=== PATIENT | female | born 1960 | race Caucasian/White ===

== ENCOUNTER 2017-07-14 22:19 | Observation (INO) | payer SELFPAY ==
[2017-07-14] MEDS ORDERED: ONDANSETRON HCL INJ/PF 4 MG/2 ML SDV IV ONE (23:04)
[2017-07-14] MEDS ORDERED: NORMAL SALINE 1000 ML 1,000 ML IV ONE (23:04)
--- NOTE | 2017-07-14 23:10 | ER Document Report ---
ED General - General Chief Complaint: Nausea/Vomiting Stated Complaint: NAUSEA Time Seen by Provider: 07/14/17 22:58 Notes: Patient is a 56-year-old female who presents with complaint of altered mental status and vomiting. It is very difficult to determine how long this has been going on this patient is able answer some questions but is very foggy headed on exam. She received Zofran for ambulance. She initially told me that she has been sick all day but then further vesication sounds as if she has been sick for several days. She denies any pain. She denies eyes abdominal pain. She denies chest pain. She denies headache. She denies diarrhea. She denies being an alcoholic. She denies drinking alcohol on a daily basis. She denies any drug use. She says last time she used drugs was 15 years ago. At that time she was using meth. She denies any recent fevers or infections. She denies ever for like this before. She does mention that her blood sugars have been running high. She is unsure exactly how high. She is on Lantus as well as Novolog as well as metformin. She says she has been taking these medications. She denies any trauma to her head. TRAVEL OUTSIDE OF THE [place] IN LAST 30 DAYS: No - Related Data Allergies/Adverse Reactions: No Known Allergies Allergy (Verified 07/14/17 22:58) Past Medical History - Social History Smoking Status: Unknown if Ever Smoked Frequency of alcohol use: None Drug Abuse: None Family History: Reviewed & Not Pertinent Patient has suicidal ideation: No Patient has homicidal ideation: No Endocrine Medical History: Reports: Hx Diabetes Mellitus Type 1 Renal/ Medical History: Denies: Hx Peritoneal Dialysis - Immunizations Hx Diphtheria, Pertussis, Tetanus Vaccination: Yes Review of Systems - Review of Systems Notes: My Normal Review Basic REVIEW OF SYSTEMS: CONSTITUTIONAL : Denies fever, chills, or sweats. Denies recent illness. EENT: Denies eye, ear, throat, or mouth pain or symptoms. Denies nasal or sinus congestion. CARDIOVASCULAR: Denies chest pain. RESPIRATORY: Denies cough, cold, or chest congestion. Denies shortness of breath, difficulty breathing, or wheezing. GASTROINTESTINAL: Denies abdominal pain. Recurrent vomiting GENITOURINARY: Denies difficulty urinating, painful urination, burning, frequency, or blood in urine. MUSCULOSKELETAL: Denies neck or back pain or joint pain or swelling. SKIN: Denies rash or skin lesions. NEUROLOGICAL: Altered mental status denies headache. Denies weakness or paralysis or loss of use of either side. Denies problems with gait or speech. Denies sensory or motor loss. ALL OTHER SYSTEMS REVIEWED AND NEGATIVE. Physical Exam - Vital signs Vitals: Resp 21 H 07/14/17 23:20 - Notes Notes: General Appearance: Well nourished, patient is very somnolent keeping her eyes closed. She speaks very slowly and softly. Vitals: reviewed, See vital signs table. Head: no swelling or tenderness to the head Eyes: PERRL, EOMI, Conjuctiva clear Mouth: No decreasd moisture Throat: No tonsillar inflammation, No airway obstruction, No lymphadenopathy Neck: Supple, no neck tenderness overall good no blood in Lungs: No wheezing, No rales, No rhonci, No accessory muscle use, good air exchange bilaterally. Heart: Normal rate, Regular rythm, No murmur, no rub Abdomen: Normal BS, soft, No rigidity, No abdominal tenderness, No guarding, no rebound, no abdominal masses, Extremities: strength 5/5 in all extremities, good pulses in all extremities, no swelling or tenderness in the extremities, no edema. Skin: warm, dry, appropriate color, no rash Neuro: speech clear, oriented x 2, somnolent affect, responds appropriately to questions. Cranial nerves II through XII are intact. Distal sensation intact. Patient has good strength in all 4 extremities. Course - Re-evaluation Re-evalutation: 07/15/17 01:08 Patient's blood work shows leukocytosis. I do not see any other signs of infection. Patient is able answer questions but still somewhat somnolent. I informed her that I think we should go forward with a lumbar puncture. She is agreeable to this. She denies being on any blood thinning medications. 07/15/17 01:57 Just before want to do the lumbar puncture the patient and start to refuse it. I tried to explain to her at length and the procedure. Patient still refuses and says she will not have it done. I informed her that this is to rule out meningitis which is a life-threatening condition. I informed her that I want to rule this out because she has a leukocytosis and ongoing somnolence without any other source what could be causing it. Patient shows understanding of this but still refuses lumbar puncture. I therefore have prophylactically covered for infection. I did speak with the hospitalist, Dr. Mccall, who agrees to evaluate her for admission. Dictation of this chart was performed using voice recognition software; therefore, there may be some unintended grammatical errors. - Vital Signs Vital signs: Temp Pulse Resp BP Pulse Ox 16 113/80 95 07/14/17 23:29 07/14/17 23:29 07/14/17 23:29 - Laboratory Result Diagrams: 07/14/17 23:20 07/14/17 23:20 Laboratory results interpreted by me: 07/14/17 07/14/17 07/14/17 23:20 23:20 23:20 WBC 16.3 H Hgb 15.7 H Seg Neutrophils % 87.0 H Lymphocytes % 9.1 L Monocytes % 2.8 L Absolute Neutrophils 14.1 H Glucose 172 H POC Glucose Ammonia < 8.7 L Urine Protein Urine Ketones Urine Urobilinogen Urine Ascorbic Acid 07/14/17 07/14/17 23:27 23:28 WBC Hgb Seg Neutrophils % Lymphocytes % Monocytes % Absolute Neutrophils Glucose POC Glucose 156 H Ammonia Urine Protein 30 H Urine Ketones 20 H Urine Urobilinogen 2.0 H Urine Ascorbic Acid 40 H - EKG Interpretation by Me Additional EKG results interpreted by me: 07/14/17 23:27 EKG is reviewed and interpreted by me. EKG shows sinus rhythm with a rate of [address] segment elevation or depression. No ischemic T-wave inversions. DC interval, QRS duration, QTc intervals are within normal range. No old EKG available for comparison. Discharge - Discharge Clinical Impression: Vomiting Qualifiers: Vomiting type: unspecified Vomiting Intractability: unspecified Nausea presence : with nausea Qualified Code(s): R11.2 - Nausea with vomiting, unspecified Altered mental status Qualifiers: Altered mental status type: unspecified Qualified Code(s): R41.82 - Altered mental status, unspecified Leukocytosis Qualifiers: Leukocytosis type: unspecified Qualified Code(s): D72.829 - Elevated white blood cell count, unspecified Condition: Stable Disposition: ADMITTED OBSERVATION Admitting Provider: Hospitalist Unit Admitted: Telemetry Referrals: ZIBELIN,QASIM JM, EXAMINATION GRADER [Primary Care Provider] - Follow up as needed
[2017-07-14 23:42] LABS: ABSOLUTE BASOPHILS # (AUTO) 0.1 10^3/uL (0.0-0.2); ABSOLUTE EOSINOPHILS # (AUTO) 0.1 10^3/uL (0.0-0.6); ABSOLUTE LYMPHOCYTES (AUTO) 1.5 10^3/uL (0.5-4.7); ABSOLUTE MONOCYTES (AUTO) 0.5 10^3/uL (0.1-1.4); ABSOLUTE NEUT (AUTO) 14.1 10^3/uL (1.7-8.2); BASOPHILS % (AUTO) 0.3 % (0-2); EOSINOPHILS % (AUTO) 0.8 % (0-6); HEMATOCRIT 45.6 % (36.0-47.0); HEMOGLOBIN 15.7 g/dL (12.0-15.5); LYMPHOCYTES % (AUTO) 9.1 % (13-45); MEAN CORPUSCULAR HEMOGLOBIN 30.5 pg (27.0-33.4); MEAN CORPUSCULAR HGB CONC 34.5 g/dL (32.0-36.0); MEAN CORPUSCULAR VOLUME 89 fl (80-97); MONOCYTES % (AUTO) 2.8 % (3-13); PLATELET COUNT 389 10^3/uL (150-450); RED BLOOD COUNT 5.15 10^6/uL (3.72-5.28); RED CELL DISTRIBUTION WIDTH 12.4 % (11.5-14.0); TOTAL CELLS COUNTED % (AUTO) 100 %; WHITE BLOOD COUNT 16.3 10^3/uL (4.0-10.5)
[2017-07-14 23:46] LABS: ALANINE AMINOTRANSFERASE 46 U/L (9-52); ALBUMIN 4.2 g/dL (3.5-5.0); ALKALINE PHOSPHATASE 93 U/L (38-126); ASPARTATE AMINO TRANSFERASE 26 U/L (14-36); BILIRUBIN,DIRECT 0.3 mg/dL (0.0-0.4); BILIRUBIN,TOTAL 0.5 mg/dL (0.2-1.3); BLOOD UREA NITROGEN 19 mg/dL (7-20); CALCIUM 9.8 mg/dL (8.4-10.2); CARBON DIOXIDE 29 mmol/L (22-30); GLUCOSE 172 mg/dL (75-110); LIPASE 39.6 U/L (23-300); POTASSIUM 4.1 mmol/L (3.6-5.0); TOTAL PROTEIN 7.3 g/dL (6.3-8.2)
[2017-07-14 23:47] LABS: APPEARANCE,URINE SLIGHTLY-CLOUDY; BILIRUBIN,URINE NEGATIVE (NEGATIVE); COLOR,URINE AMBER; GLUCOSE, URINE NEGATIVE (NEGATIVE); KETONES,URINE 20 mg/dL (NEGATIVE); LEUKOCYTE ESTERASE,URINE NEGATIVE (NEGATIVE); NITRITE,URINE NEGATIVE (NEGATIVE); PROTEIN,URINE 30 mg/dL (NEGATIVE); URINE SPECIFIC GRAVITY 1.027
[2017-07-14 23:50] LABS: ANION GAP 12 (5-19); CHLORIDE 102 mmol/L (98-107)
[2017-07-15 00:05] LABS: URINE BARBITURATES SCREEN NEGATIVE; URINE BENZODIAZEPINES SCREEN NEGATIVE; URINE COCAINE SCREEN NEGATIVE; URINE MARIJUANA (THC) SCREEN UNCONFIRMED POSITIVE; URINE METHADONE SCREEN NEGATIVE; URINE PHENCYCLIDINE SCREEN NEGATIVE
--- NOTE | 2017-07-15 00:10 | RADIOLOGY REPORT (SQ) ---
EXAM DESCRIPTION: CT HEAD WITHOUT CLINICAL HISTORY: 56 years Female, altered mental status COMPARISON: None. TECHNIQUE: No contrast. Coronal and sagittal reformat. This exam was performed according to our departmental dose-optimization program, which includes automated exposure control, adjustment of the mA and/or kV according to patient size and/or use of iterative reconstruction technique. FINDINGS: No hemorrhage or infarct. No mass, mass effect, or midline shift. 2 cm left maxillary retention cyst-mucocele. Small bilateral ethmoid left maxillary mucosal thickening. Brain and extra-axial structures appear otherwise intact. IMPRESSION: No acute findings.
--- NOTE | 2017-07-15 00:11 | RADIOLOGY REPORT (SQ) ---
EXAM DESCRIPTION: CHEST SINGLE VIEW CLINICAL HISTORY: 56 years Female, altered mental status COMPARISON: None. NUMBER OF VIEWS/TECHNIQUE: 1/AP FINDINGS: Adequate lung volume, clear parenchyma, normal cardiac silhouette, and intact bony thorax. IMPRESSION: No acute cardiopulmonary findings.
--- NOTE | 2017-07-15 00:11 | EKG REPORT ---
SEVERITY:- ABNORMAL ECG - SINUS RHYTHM RAA, CONSIDER BIATRIAL ABNORMALITIES : Confirmed by: Jamin Chin MD 15-Jul-2017 00:10:54
[2017-07-15 01:05] LABS: VENOUS BLOOD BASE EXCESS 2.1 mmol/L; VENOUS BLOOD HCO3 29.2 mmol/L (20-32); VENOUS BLOOD PH 7.34 (7.30-7.42)
[2017-07-15] MEDS ORDERED: LIDOCAINE 1% INJ-PF (10 MG/ML) 30 ML SDV INJ ONE (01:06)
[2017-07-15] MEDS ORDERED: CEFTRIAXONE INJ 1000 MG VIAL IV ONE (01:20)
[2017-07-15] MEDS ORDERED: ACYCLOVIR SODIUM INJ/PF 500 MG/10 ML SDV IV ONE (01:21)
[2017-07-15] MEDS ORDERED: DEXTROSE 40% GEL 15 GM TUBE PO PRN ×2 (04:23)
[2017-07-15] MEDS ORDERED: MAG HYDROX/AL HYDROX/SIMETH SUSP 30 ML UDCUP PO PRN (04:23)
[2017-07-15] MEDS ORDERED: DEXTROSE 50%-WATER 25 GM/50 ML DISP.SYRIN IV PRN ×2 (04:23)
[2017-07-15] MEDS ORDERED: MAGNESIUM HYDROXIDE SUSP 30 ML UDCUP PO PRN (04:23)
[2017-07-15] MEDS ORDERED: GLUCAGON,HUMAN RECOMB 1 MG INJ IM PRN (04:23)
[2017-07-15] MEDS ORDERED: IPRATROPIUM/ALBUTEROL 0.5-2.5 MG/3 ML AMPUL NEB PRN (04:23)
[2017-07-15] MEDS ORDERED: INSULIN LISPRO 100 UNIT/ML 3 ML VIAL SUBCUT PRN (04:23)
[2017-07-15] MEDS ORDERED: ONDANSETRON HCL INJ/PF 4 MG/2 ML SDV IV PRN (04:23)
[2017-07-15] MEDS: HEPARIN SOD (PORCINE) 5,000 UNIT/ML 1 ML SYRINGE SUBCUT SCH ×3 (05:59→21:33)
[2017-07-15] MEDS ORDERED: LACTULOSE SYRUP 20 GM/30 ML UDCUP PO ONE (06:00)
[2017-07-15 06:08] LABS: ABSOLUTE BASOPHILS # (AUTO) 0.1 10^3/uL (0.0-0.2); ABSOLUTE EOSINOPHILS # (AUTO) 0.1 10^3/uL (0.0-0.6); ABSOLUTE LYMPHOCYTES (AUTO) 2.7 10^3/uL (0.5-4.7); ABSOLUTE MONOCYTES (AUTO) 0.4 10^3/uL (0.1-1.4); ABSOLUTE NEUT (AUTO) 7.8 10^3/uL (1.7-8.2); BASOPHILS % (AUTO) 1.2 % (0-2); EOSINOPHILS % (AUTO) 1.1 % (0-6); HEMOGLOBIN 14.2 g/dL (12.0-15.5); LYMPHOCYTES % (AUTO) 24.2 % (13-45); MEAN CORPUSCULAR HEMOGLOBIN 30.6 pg (27.0-33.4); MEAN CORPUSCULAR HGB CONC 34.7 g/dL (32.0-36.0); MEAN CORPUSCULAR VOLUME 88 fl (80-97); MONOCYTES % (AUTO) 3.8 % (3-13); PLATELET COUNT 345 10^3/uL (150-450); RED BLOOD COUNT 4.66 10^6/uL (3.72-5.28); RED CELL DISTRIBUTION WIDTH 12.1 % (11.5-14.0); SEGMENTED NEUTROPHILS % (AUTO) 69.7 % (42-78); TOTAL CELLS COUNTED % (AUTO) 100 %; WHITE BLOOD COUNT 11.2 10^3/uL (4.0-10.5)
--- NOTE | 2017-07-15 06:14 | PDOC H&P ---
History of Present Illness Admission Date/PCP: 07/15/17 02:11 FLAVIA OCHOA Patient complains of: Constipation nausea and vomiting History of Present Illness: GRACIE RUTH is a 56 year old female with past medical history of chronic bronchitis, tobacco, hypertension, diabetes and polysubstance abuse. Patient presents with 24 hours of fatigue and 30 minutes of vomiting gastric content. . On presentation to the emergency room she is found to have leukocytosis and an unable to provide meaningful history refusing lumbar puncture. She started on IV Rocephin and acyclovir empirically and referred to the hospitalist for admission. She admits to chronic constipation and diarrhea for 24 hours. She denies headache, fever, pain, stiff neck or photophobia. She denies recent change in medications or hypoglycemic events. She admits to daily Sudafed use. No episodes of emesis Past Medical History Cardiac Medical History: Reports: None Pulmonary Medical History: Reports: Bronchitis EENT Medical History: Reports: Nose - Rhinorrhea Neurological Medical History: Reports: Other - Right leg neuropathy Endocrine Medical History: Reports: Diabetes Mellitus Type 1 Renal/ Medical History: Reports: None Malignancy Medical History: Reports: Skin Cancer GI Medical History: Reports: None Musculoskeltal Medical History: Reports: None Skin Medical History: Reports: None Psychiatric Medical History: Reports: Substance Abuse, Tobacco Dependency Traumatic Medical History: Reports: None Hematology: Reports: None Infectious Medical History: Reports: None Social History Information Source: Patient, [facility] Records Lives with: Family Smoking Status: Unknown if Ever Smoked Frequency of Alcohol Use: Occasional Drugs: Marijuana, Other - Amphetamine - Advance Directive Resuscitation Status: Full Code Family History Family History: DM Parental Family History Reviewed: Yes Children Family History Reviewed: Yes Sibling(s) Family History Reviewed.: Yes Medication/Allergy Home Medications: Gabapentin [Neurontin 300 mg Capsule] 600 mg PO Q8 11/21/14 Insulin Glargine,Hum.rec.anlog [Lantus] 21 unit SQ DAILY 11/21/14 Metformin HCl [Glucophage 500 mg Tablet] 500 mg PO BIDACBS 11/21/14 Hydrocodone/Acetaminophen [Vicodin 5-300 mg Tablet] 1 - 2 tab PO ASDIR PRN #15 tab 11/22/14 Insulin Glargine,Hum.rec.anlog [Lantus Insulin 100 Unit/1 ml 10 ml] 21 unit SUBCUT DAILY #1 bottle 11/22/14 Ondansetron [Zofran Odt 4 mg Tablet] 1 - 2 tab PO Q4H #10 tab.rapdis 11/22/14 Allergies/Adverse Reactions: No Known Allergies Allergy (Verified 07/14/17 22:58) Review of Systems Constitutional: PRESENT: as per HPI, fatigue. ABSENT: fever(s), headache(s), night sweats, weakness Eyes: ABSENT: visual disturbances Ears: ABSENT: hearing changes Cardiovascular: ABSENT: chest pain, dyspnea on exertion, edema, orthropnea, palpitations Respiratory: PRESENT: cough. ABSENT: hemoptysis Gastrointestinal: PRESENT: as per HPI, constipation, diarrhea, nausea, vomiting Genitourinary: ABSENT: dysuria, hematuria Musculoskeletal: ABSENT: joint swelling Integumentary: ABSENT: rash, wounds Neurological: ABSENT: abnormal gait, abnormal speech, confusion, dizziness, focal weakness, syncope Psychiatric: PRESENT: as per HPI Endocrine: PRESENT: as per HPI Hematologic/Lymphatic: ABSENT: easy bleeding, easy bruising Physical Exam Vital Signs: Temp Pulse Resp BP Pulse Ox 98.1 F 17 130/81 H 94 07/15/17 02:15 07/15/17 03:01 07/15/17 03:00 07/15/17 03:01 Intake & Output 07/13/17 07/14/17 07/15/17 11:59 11:59 11:59 Weight 74.843 kg Respiratory exam: PRESENT: clear to auscultation divya. ABSENT: rales, rhonchi, wheezes Cardiovascular exam: PRESENT: RRR. ABSENT: diastolic murmur, rubs, systolic murmur Pulses: PRESENT: normal dorsalis pedis pul Vascular exam: PRESENT: normal capillary refill GI/Abdominal exam: PRESENT: normal bowel sounds, soft. ABSENT: distended, guarding, mass, organolmegaly, rebound, tenderness Rectal exam: PRESENT: deferred Extremities exam: PRESENT: full ROM, tenderness - Chronic right leg neuropathy. ABSENT: calf tenderness, clubbing, pedal edema Musculoskeletal exam: PRESENT: ambulatory, full ROM Neurological exam: PRESENT: alert, awake, oriented to person, oriented to place , oriented to time, oriented to situation, CN II-XII grossly intact. ABSENT: motor sensory deficit Psychiatric exam: PRESENT: appropriate affect, normal mood. ABSENT: homicidal ideation, suicidal ideation Skin exam: PRESENT: dry, intact, warm. ABSENT: cyanosis, rash Results Impressions: Chest X-Ray 07/14/17 23:03 IMPRESSION: No acute cardiopulmonary findings. Head CT 07/14/17 23:03 IMPRESSION: No acute findings. Assessment & Plan - Diagnosis (1) Gastroenteritis Is this a current diagnosis for this admission?: Yes Plan: Gastroenteritis versus cannabis hyperemesis syndrome versus resolving constipation. Symptomatic and supportive care. Acute event appears to have resolved. Flagyl and Cipro as needed fever or worsening leukocytosis consider CT imaging of the abdomen pelvis. (2) Altered mental status Qualifiers: Altered mental status type: unspecified Qualified Code(s): R41.82 - Altered mental status, unspecified Is this a current diagnosis for this admission?: Yes Plan: Likely secondary to polysubstance abuse, resolved to baseline (3) Leukocytosis Qualifiers: Leukocytosis type: unspecified Qualified Code(s): D72.829 - Elevated white blood cell count, unspecified Is this a current diagnosis for this admission?: Yes Plan: Secondary #1, supportive care reevaluate CBC (4) Vomiting Qualifiers: Vomiting type: unspecified Vomiting Intractability: unspecified Nausea presence: with nausea Qualified Code(s): R11.2 - Nausea with vomiting, unspecified Is this a current diagnosis for this admission?: Yes Plan: Secondary #1 appears to resolved. Supportive care (5) Substance abuse Is this a current diagnosis for this admission?: Yes Plan: Education and cessation counseling - Time Time Spent: 30 to 50 Minutes
[2017-07-15 06:20] LABS: ANION GAP 8 (5-19); BLOOD UREA NITROGEN 15 mg/dL (7-20); CALCIUM 9.1 mg/dL (8.4-10.2); CARBON DIOXIDE 26 mmol/L (22-30); CHLORIDE 107 mmol/L (98-107); GLUCOSE 129 mg/dL (75-110); POTASSIUM 4.2 mmol/L (3.6-5.0); SODIUM 141.4 mmol/L (137-145)
[2017-07-15] MEDS: NORMAL SALINE 1000 ML 1,000 ML IV PRN ×2 (09:20→16:36)
[2017-07-15] MEDS: DOCUSATE SODIUM 100 MG CAPSULE PO SCH ×2 (10:38→16:36)
[2017-07-15] MEDS: GABAPENTIN 400 MG CAPSULE PO SCH ×2 (14:23→21:33)
[2017-07-15] MEDS: ACETAMINOPHEN 325 MG TABLET PO PRN (16:35)
--- NOTE | 2017-07-15 16:42 | Progress Note ---
Provider Note Provider Note: The patient was admitted overnight by the Learning Technologist. The patient was briefly seen. She reports that she is feeling much better; she denies abdominal pain, nausea, vomiting, diarrhea, and constipation. Agree with plan as outlined by previous provider. 1. Gastroenteritis; improved. Symptoms were possibly related to gastroenteritis versus cannabis hyperemesis syndrome versus constipation versus polysubstance abuse. The patient has been admitted to the medical floor. She is receiving symptomatic and supportive care with IV fluid resuscitation and antiemetics as needed. 2. Altered mental status. Likely secondary to polysubstance abuse. This is resolved and the patient has returned to her baseline. Of note, the patient's daughters met with nursing today and reports that the patient has a recent history of methamphetamine abuse and had similar symptoms approximately 3 weeks ago. They are concerned that their mother is continuing to utilize illicit drugs. 3. Leukocytosis; trending down. Likely secondary to gastroenteritis. We will continue to monitor. No indication for antibiotic therapy at this time. 4. Vomiting; resolved. Antiemetics are available if needed. 5. Substance abuse. Education cessation counseling provided. The vacation planner is consulted to assess needs. Will monitor for acute withdrawal symptoms and treat as needed. Anticipate the patient will be appropriate for discharge tomorrow morning.
[2017-07-15] MEDS: METOPROLOL TARTRATE 25 MG TABLET PO SCH (21:33)
[2017-07-15] MEDS ORDERED: INSULIN GLARGINE,HUM.REC.ANLOG 1,000 UNIT/10 ML UNIT SUBCUT SCH (22:00)
[2017-07-16 05:14] LABS: ABSOLUTE BASOPHILS # (AUTO) 0.1 10^3/uL (0.0-0.2); ABSOLUTE EOSINOPHILS # (AUTO) 0.2 10^3/uL (0.0-0.6); ABSOLUTE LYMPHOCYTES (AUTO) 2.9 10^3/uL (0.5-4.7); ABSOLUTE MONOCYTES (AUTO) 0.4 10^3/uL (0.1-1.4); ABSOLUTE NEUT (AUTO) 3.5 10^3/uL (1.7-8.2); BASOPHILS % (AUTO) 1.1 % (0-2); EOSINOPHILS % (AUTO) 3.1 % (0-6); HEMATOCRIT 41.2 % (36.0-47.0); HEMOGLOBIN 14.2 g/dL (12.0-15.5); LYMPHOCYTES % (AUTO) 40.9 % (13-45); MEAN CORPUSCULAR HEMOGLOBIN 30.5 pg (27.0-33.4); MEAN CORPUSCULAR HGB CONC 34.4 g/dL (32.0-36.0); MEAN CORPUSCULAR VOLUME 89 fl (80-97); MONOCYTES % (AUTO) 5.7 % (3-13); PLATELET COUNT 332 10^3/uL (150-450); RED BLOOD COUNT 4.66 10^6/uL (3.72-5.28); RED CELL DISTRIBUTION WIDTH 12.3 % (11.5-14.0); SEGMENTED NEUTROPHILS % (AUTO) 49.2 % (42-78); TOTAL CELLS COUNTED % (AUTO) 100 %
[2017-07-16 05:32] LABS: ANION GAP 7 (5-19); BLOOD UREA NITROGEN 8 mg/dL (7-20); CALCIUM 8.9 mg/dL (8.4-10.2); CARBON DIOXIDE 31 mmol/L (22-30); CHLORIDE 106 mmol/L (98-107); GLUCOSE 110 mg/dL (75-110); POTASSIUM 3.8 mmol/L (3.6-5.0); SODIUM 144.4 mmol/L (137-145)
[2017-07-16] MEDS: GABAPENTIN 400 MG CAPSULE PO SCH ×2 (05:58→14:08)
[2017-07-16] MEDS: HEPARIN SOD (PORCINE) 5,000 UNIT/ML 1 ML SYRINGE SUBCUT SCH ×2 (05:58→14:08)
[2017-07-16] MEDS: DOCUSATE SODIUM 100 MG CAPSULE PO SCH (09:44)
[2017-07-16] MEDS: METOPROLOL TARTRATE 25 MG TABLET PO SCH (09:44)
[2017-07-16] MEDS: ACETAMINOPHEN 325 MG TABLET PO PRN (09:44)
[2017-07-16] MEDS ORDERED: LISINOPRIL 5 MG TABLET PO SCH (10:00)
[2017-07-16 16:28] VITALS: BP 120/67
--- NOTE | 2017-07-23 14:22 | PDOC DISCHARGE SUMMARY ---
General - Admit/Disc Date/PCP Admission Date/Primary Care Provider: 07/15/17 02:11 QASIM [facility]ORD[facility] Discharge Date: 07/16/17 - Discharge Diagnosis (1) Vomiting Is this a current diagnosis for this admission?: Yes Summary: Improved after approx. 24 hours. Symptoms were possibly related to gastroenteritis versus cannabis hyperemesis syndrome versus constipation versus polysubstance abuse. The patient was been admitted to the medical floor. She received symptomatic and supportive care with IV fluid resuscitation and antiemetics as needed. The patient was discharged home within 24-36 hours of admission once her symptoms had resolved. (2) Altered mental status Is this a current diagnosis for this admission?: Yes Summary: Likely secondary to polysubstance abuse. Resolved within 12-24 hrs of admission and the patient had returned to her baseline. Of note, the patient's daughters met with nursing staff and reported that the patient has a recent history of methamphetamine abuse and had similar symptoms approximately 3 weeks ago. They are concerned that their mother is continuing to utilize illicit drugs. The patient was counseled about the dangers of drug use. She endorses methamphetamine use but states it was a "long time ago." She endorses current marijuana use. (3) Leukocytosis Is this a current diagnosis for this admission?: Yes Summary: Likely secondary to gastroenteritis. Trended down after IVF and returned to normal prior to discharge. No indication for antibiotic therapy (4) Substance abuse Is this a current diagnosis for this admission?: Yes Summary: The strategic planner presented the patient with substance abuse rehabilitation options. The patient states she understands the importance of quitting. - Additional Information Resuscitation Status: Full Code Discharge Diet: As Tolerated, Regular Discharge Activity: Activity As Tolerated, Balance Activity w/Rest, Energy Conservation Home Medications: Metformin HCl [Glucophage 500 mg Tablet] 500 mg PO BIDACBS 11/21/14 Gabapentin [Neurontin] 1,200 mg PO Q8 07/15/17 Insulin Glargine,Hum.rec.anlog [Lantus Insulin 100 Unit/1 ml 10 ml] 50 unit SUBCUT QHS 07/15/17 Insulin Lispro [Humalog Insulin (Lispro) 100 unit/mL] 20 unit SUBCUT MEALS 07/15 Lisinopril [Prinivil 5 mg Tablet] 5 mg PO DAILY 07/15/17 Metoprolol Tartrate [Lopressor 25 mg Tablet] 25 mg PO Q12 07/15/17 History of Present Illness History of Present Illness: GRACIE RUTH is a 56 year old female with past medical history of chronic bronchitis, tobacco, hypertension, diabetes and polysubstance abuse. Patient presents with 24 hours of fatigue and 30 minutes of vomiting gastric content. . On presentation to the emergency room she is found to have leukocytosis and an unable to provide meaningful history refusing lumbar puncture. She started on IV Rocephin and acyclovir empirically and referred to the hospitalist for admission. She admits to chronic constipation and diarrhea for 24 hours. She denies headache, fever, pain, stiff neck or photophobia. She denies recent change in medications or hypoglycemic events. She admits to daily Sudafed use. No episodes of emesis Hospital Course Hospital Course: as above Physical Exam Vital Signs: Temp Pulse Resp BP Pulse Ox 98.7 F 78 18 120/67 95 07/16/17 16:10 07/16/17 16:10 07/16/17 16:10 07/16/17 16:02 07/16/17 16:10 Results Laboratory Results: 07/16/17 04:21 07/16/17 04:21 Impressions: Chest X-Ray 07/14/17 23:03 IMPRESSION: No acute cardiopulmonary findings. Head CT 07/14/17 23:03 IMPRESSION: No acute findings. Status: Imported from PACS Qualifiers - * PATIENT BEING DISCHARGED WITH ANY OF THE FOLLOWING DIAGNOSIS: No Plan Discharge Plan: The patient was admitted for nausea and vomiting, likely secondary to polysubstance abuse. She was treated with IVF and antiemetics. Discharged home with instructions to stop smoking marijuana. No changes made to her home medications. Time Spent: Less than 30 Minutes
== END 2017-07-16 17:15 | disposition home or self-care (01) ==
LOC: ER 22:19 → EH 07-15 02:11 → 3N 07-15 09:50 → 3W 07-15 18:13
PROVIDERS: ADMIT Internal Medicine; ATTEND Internal Medicine
DX: K52.9 Noninfective gastroenteritis and colitis, unspecified (principal); R41.82 Altered mental status, unspecified; D72.829 Elevated white blood cell count, unspecified; R11.2 Nausea with vomiting, unspecified; F19.10 Other psychoactive substance abuse, uncomplicated; K59.09 Other constipation; E10.40 Type 1 diabetes mellitus with diabetic neuropathy, unspecified; R05 Cough; Z85.828 Personal history of other malignant neoplasm of skin; Z79.899 Other long term (current) drug therapy; Z53.29 Procedure and treatment not carried out because of patient's decision for other reasons
CPT/HCPCS: 93005; 99285; 96361; 96375; 96365; 96367; 36415 ×3; 87040; 82962 ×2; 82140; 83690; 83735; 84443; 85025 ×3; 80048 ×2; 80053; 81001; 84484; 80307; 83036 ×2; 82803; 71045; 70450; 93010; G0378 ×3; J1815 ×2; J1644 ×2; J0133; J0696; J2405; J7030 ×2

== ENCOUNTER → 2018-10-07 | Outpatient (CLI) | payer SELFPAY ==
--- NOTE | 2018-10-07 16:48 | RADIOLOGY REPORT (SQ) ---
EXAM DESCRIPTION: SHOULDER LEFT 2 OR MORE VIEWS COMPLETED DATE/TIME: 10/07/2018 4:22 pm REASON FOR STUDY: M25.511 PAIN IN RIGHT SHOULDER M25.511 PAIN IN RIGHT SHOULDER COMPARISON: None. NUMBER OF VIEWS: Three views. TECHNIQUE: Internal rotation, external rotation, and Y view images acquired of the left shoulder. LIMITATIONS: None. FINDINGS: MINERALIZATION: Normal. BONES: No acute fracture. No worrisome bone lesions. JOINTS: No dislocation. VISUALIZED LUNGS AND RIBS: No pneumothorax. No rib fracture. SOFT TISSUES: No radiopaque foreign body. OTHER: No other significant finding. IMPRESSION: NEGATIVE STUDY OF THE LEFT SHOULDER. NO RADIOGRAPHIC EVIDENCE OF ACUTE INJURY. TECHNICAL DOCUMENTATION: JOB ID: [id number] [employer]- All Rights Reserved Reading location - IP/workstation name: [email or web address]
== END ==
LOC: RAD 16:05
PROVIDERS: ATTEND Nurse Practitioner Family
DX: M25.511 Pain in right shoulder (principal)